=== PATIENT | male | born 1985 | race Caucasian/White ===

== ENCOUNTER 2021-03-10 02:25 | Emergency (ER) | payer OTHER ==
[~2021-03-10] VITALS: Ht 188 cm; Wt 102.1 kg
[2021-03-10 02:55] VITALS: BP 139/90
--- NOTE | 2021-03-10 03:11 | NUR ---
[facility] WITH PT
[2021-03-10] MEDS ORDERED: LIDOCAINE/EPI 2% 1:100000 20 ML VIAL INJ ONE (03:30)
--- NOTE | 2021-03-10 03:40 | NUR ---
Dr. Castro examining patient.
[2021-03-10 03:59] VITALS: BP 139/90
--- NOTE | 2021-03-10 04:00 | NUR ---
Patient discharged with v/s stable. Written and verbal after care instructions given and explained. Patient verbalized understanding. Ambulatory with steady gait. All questions addressed prior to discharge. Advised to follow up with PMD.
== END 2021-03-10 03:58 | disposition home or self-care (01) ==
LOC: MED 02:25
DX: S01.81XD Laceration without foreign body of other part of head, subsequent encounter (principal); W19.XXXD Unspecified fall, subsequent encounter
CPT/HCPCS: 12014; 99282; J2001